=== PATIENT | female | born 1965 | race Caucasian/White ===

== ENCOUNTER 2018-08-14 19:04 | Emergency (ER) | payer OTHER ==
--- NOTE | 2018-08-14 19:16 | PDOC ---
Attending Attestation - HPI HPI: 08/14/18 20:09 The patient is a 53 year old female, who presents to the emergency department for evaluation s/p fall earlier today. The patient states she had 4 glasses of wine at a nursing home [facility] preceding the fall. The patient states she was able to walk without difficulty to the train station and then when looking in her purse became unstable and fell forward hitting her head. The patient denies any loss of consciousness and states she can recall all events preceding and after the fall. The patient reports she called her who notified 911. The patient denies chest pain, shortness of breath and dizziness. Denies fever, chills, nausea, vomit, diarrhea and constipation. Denies dysuria, frequency, urgency and hematuria. Allergies: NKA Documentation prepared by Robert Antoine, acting as medical sonographer for John Stallworth MD. <Robert Antione - Last Filed: 08/14/18 23:38> - Resident Resident Name: Isha Love - ED Attending Attestation I have performed the following: I have examined & evaluated the patient, The case was reviewed & discussed with the resident, I agree w/resident's findings & plan, Exceptions are as noted - Physicial Exam PE: 08/14/18 23:47 Patient is awake and alert, GCS-15; Normocephalic, atraumatic PERRLA, EOMI + Extensive ecchymosis and soft tissue swelling to the right infraorbital area, without bony step-offs; minimal subcutaneous emphysema is appreciated; 1 cm puncture laceration is noted to the right alar facial fold; small abrasions are noted to the ER glabella and bridge of nose; no septal hematoma is identified. Coagulated blood is noted within the nares bilaterally. +1cm lip laceration to the right and left upper lip involving the joseph border(through the full thickness of the lip) with fracture of teeth #8/9. no mandibular ttp, no dental malocclusion. c-spine: no midline ttp, no deform, FROM - Medical Decision Making 08/14/18 23:53 53-year-old female with multiple facial abrasions and lacerations including the alar facial fold on the right, and bilateral lip lacerations involving vermilion border as well as through and through lip lacerations. Tetanus and IV clindamycin been administered. CT of head shows no evidence of acute intra- cranial pathology. CT of facial bones reveals left nasal bone fracture. CT of cervical spine reveals no evidence of fracture dislocation. Will transfer to [facility] for ENT closure of complex lacerations. <John Stallworth - Last Filed: 08/14/18 23:55>
[2018-08-14 19:27] LABS: EOS % 2.1 % (0-4.5); HEMATOCRIT 39.3 % (32.4-45.2); HEMOGLOBIN 13.7 GM/dL (10.7-15.3); LYMPH % 41.9 % (8-40); MCH 32.6 pg (25.7-33.7); MCHC 34.8 g/dl (32.0-36.0); MEAN CELL VOLUME 93.6 fl (80-96); MEAN PLT VOLUME 6.9 fl (7.5-11.1); PLATELET COUNT 230 K/MM3 (134-434); RDW 12.9 % (11.6-15.6); WHITE BLOOD COUNT 8.2 K/mm3 (4.0-10.0)
--- NOTE | 2018-08-14 19:28 | PDOC ---
History of Present Illness - General Stated Complaint: FALL Time Seen by Provider: 08/14/18 19:09 History Source: Patient - History of Present Illness Initial Comments: 08/14/18 19:27 The patient is a 53 year old female with no reported PMH who was BIBEMS following a fall earlier today. Patient was at a local bar where she had 4 glasses of wine celebrating her [place] [facility]. She walked to the train station without difficulty and while looking in her purse for her phone became unstable falling forward hitting her head. Patient denies LOC and states she called her who called 911. States she was ambulatory after fall, walked to a nearby bench while waiting for EMS. Patient's @ bedside. Patient interviewed without , denies any physical abuse. Patient denies any numbness, tingling. Patient denies chest pain, shortness of breath. Patient denies abdominal pain, nausea/vomiting, diarrhea/constipation. NKDA Surgical: none reported Social: social alcohol, denies other toxic habits Past History - Past Medical History Allergies/Adverse Reactions: Allergies Allergy/AdvReac Type Severity Reaction Status Date / Time No Known Allergies Allergy Verified 08/14/18 19:29 *Physical Exam - Physical Exam Comments: 08/14/18 23:58 Awake, alert, moving all 4 extremities HEENT: no mastoid ecchymosis, clear TM B/L; R infraorbital ecchymosis; 1 cm facial laceration to R alar facial fold; 1 cm R lip laceration crosses joseph border; no dental malocclusion MSK: Pelvis stable, no C-spine/L/T/S TTP, 2+ DP pulses Respiratory/Chest: positive: Lungs Clear, Normal Breath Sounds Cardiovascular: positive: S1, S2. negative: Edema, JVD, Murmur Vascular Pulses: Dorsalis-Pedis (R): 2+, Doralis-Pedis (L): 2+ ED Treatment Course - LABORATORY CBC & Chemistry Diagram: 08/14/18 19:13 08/14/18 19:13 - RADIOLOGY Radiology Studies Ordered: Category Date Time Status CERVICAL SPINE CT W/O CONTR [CT] Stat CT Scan 08/14/18 19:[address] W/O CONTRAST [CT] Stat CT Scan 08/14/18 19:[address] WITHOUT CONTRAST [CT] Stat CT Scan 08/14/18 19:10 Ordered Medical Decision Making - Medical Decision Making 08/14/18 19:33 53 year old female presents s/p fall. Actively intoxicated @ presentation. VS unremarkable. PE shows multiple facial lacerations, ecchymosis. Head/C-spine CT, facial bone CT pending. Tetanus. Patient declining pain medication. Reassess. 08/14/18 23:[address] negative for acute bleed; C-spine negative for acute fracture; no facial bone fractures. Further examination of patient's R alar facial laceration indicate patient needs ENT/plastic surgery repair. Patient consents to transfer. Will give OTD of Clindamycin for coverage of oral demetrio in lip laceration. 08/15/18 00:02 Patient accepted to [facility], Dr. Mccullough (ENT) for repair of complex facial laceration. *DC/Admit/Observation/Transfer Diagnosis at time of Disposition: Complex laceration of face - Discharge Dispostion Disposition: TRANSFER ACUTE CARE/OTHER HOSP Condition at time of disposition: Fair Decision to Admit order: No - Referrals Referrals: Vani Ballard MD [Primary Care Provider] - - Patient Instructions - Post Discharge Activity
[2018-08-14 19:29] VITALS: TEMP 98.1; BMI 27.5
[2018-08-14 19:46] LABS: INR 0.94 (0.83-1.09); PROTHROMBIN TIME (PATIENT) 11.1 SEC (9.7-13.0)
[2018-08-14] MEDS ORDERED: SODIUM CHLORIDE 0.9% 500 ML INFUS.BAG IV ONE (19:47)
[2018-08-14 19:49] LABS: ACTIVATED PTT 26.8 SECONDS (25.2-36.5)
[2018-08-14 19:50] LABS: ALBUMIN 4.4 g/dl (3.4-5.0); ALK PHOS 117 U/L (45-117); ANION GAP 12 MMOL/L (8-16); BILIRUBIN,TOTAL 0.6 mg/dL (0.2-1); BLOOD UREA NITROGEN 14 mg/dL (7-18); CALCIUM 8.5 mg/dL (8.5-10.1); CHLORIDE 102 mmol/L (98-107); CO2 23 mmol/L (21-32); CREATININE 0.8 mg/dL (0.55-1.3); GLUCOSE,RANDOM 144 mg/dL (74-106); POTASSIUM 3.6 mmol/L (3.5-5.1); SGOT/AST 123 U/L (15-37); SGPT/ALT 162 U/L (13-61); SODIUM 136 mmol/L (136-145); TOT PROT 7.8 g/dl (6.4-8.2)
[2018-08-14] MEDS ORDERED: KETOROLAC TROMETHAMINE 30 MG/1 ML VIAL IVPUSH ONE (21:20)
[2018-08-14] MEDS ORDERED: KETOROLAC TROMETHAMINE 30 MG/1 ML VIAL ONE (21:22)
[2018-08-14] MEDS ORDERED: LIDOCAINE HCL 2% (20ML MULTI-DOSE VIAL) NR ONE (22:13)
[2018-08-14] MEDS ORDERED: CLINDAMYCIN HCL 300 MG CAPSULE PO ONE (23:01)
[2018-08-14] MEDS ORDERED: DIPHTH,PERTUSS(ACELL),TET 0.5 ML DISP.SYRIN IM ONE ×2 (23:01→23:10)
[2018-08-14 23:34] VITALS: PULSE 90
[2018-08-15 00:25] VITALS: BP 109/70
== END 2018-08-15 00:36 | disposition short-term general hospital (02) ==
LOC: JER 19:04
PROC: 3E0234Z Introduction of Serum, Toxoid and Vaccine into Muscle, Percutaneous Approach (ICD-10-PCS; principal; 2018-08-14)
PROC: 3E0333Z Introduction of Anti-inflammatory into Peripheral Vein, Percutaneous Approach (ICD-10-PCS; 2018-08-14)
DX: S02.2XXA Fracture of nasal bones, initial encounter for closed fracture (principal); S01.511A Laceration without foreign body of lip, initial encounter; S02.5XXA Fracture of tooth (traumatic), initial encounter for closed fracture; W18.39XA Other fall on same level, initial encounter; Y93.89 Activity, other specified; Y92.522 Railway station as the place of occurrence of the external cause; Y99.8 Other external cause status
CPT/HCPCS: 36415; 70450-TC; 70486-TC; 72125-TC; 80053; 85025; 85610; 85730; 86850; 86900; 86901; 90715; 99283-25